=== PATIENT | male | born 1990 | race African-American/Black ===

== ENCOUNTER 2017-01-04 09:43 | Emergency (ER) | payer OTHER, MEDICAID ==
[~2017-01-04] VITALS: Ht 188 cm; Wt 100.0 kg
[~2017-01-04 09:43] MED LIST: CEPH500C3 PO; LORT5TAB PO; Z.0.NO CURRENT MEDS
[2017-01-04 09:45] VITALS: BP 133/80; PULSE 76; RESP 12; TEMP 98.7; O2SAT 99
[2017-01-04] MEDS ORDERED: IBUP800T23 PO (10:41)
[2017-01-04] MEDS ORDERED: ROBA500T PO (10:41)
[2017-01-04] MEDS ORDERED: METR-1 PO (10:41)
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
[2017-01-04] MEDS ORDERED: IBUPROFEN 800 MG TAB PO ONE (11:00)
[2017-01-04] MEDS ORDERED: METHOCARBAMOL 500 MG TAB PO ONE (11:00)
== END 2017-01-04 11:31 | disposition home or self-care (01) ==
LOC: NEPB 09:43
DX: M54.5 Low back pain (principal); G89.29 Other chronic pain
CPT/HCPCS: 99283

== ENCOUNTER 2017-03-09 23:00 | Emergency (ER) | payer OTHER, MEDICAID ==
[~2017-03-09 23:00] MED LIST changes: +IBUP800T23 PO; +METR-1 PO; +ROBA500T PO
[2017-03-09 23:03] VITALS: BP 135/84; PULSE 82; RESP 14; TEMP 99.1; O2SAT 98
[2017-03-10] MEDS ORDERED: TETANUS/DIPHTHERIA TOXOID ADULT 0.5 ML VIAL IM ONE
[2017-03-10] MEDS ORDERED: AMOXICILLIN/CLAVULANATE K 875 MG TAB PO ONE
[2017-03-10] MEDS ORDERED: RABIES VACCINE CHICK EMB INJ 2.5 UNITS/ML SYR IM ONE
[2017-03-10] MEDS ORDERED: RABIES IMMUNE GLOBULIN INJ 1,500 UNITS/10 ML VIAL IM ONE
--- NOTE | 2017-03-10 00:04 | PD ---
HPI Chief Complaint: Bite or Sting Time Seen by Provider: 00:00 Travel History International Travel<30 days: No Contact w/Intl Traveler<30days: No Traveled to known affect area: No History of Present Illness HPI 26 her old male presents for evaluation after a stray cat bite. The patient reports that he was at work today at 4 PM when he saw a cat in the bushes. He attempted to take the cat across the street to a pet company reports that the cat began acting bizarre and then attacked him and bit him on the right hand. The cat then immediately . He now has a puncture wound to the medial aspect of the right thumb as well as a more tiny puncture wound to the dorsal aspect of the right second MCP. He has mild pain associated with both. Initially he was not planning to come here for evaluation but his employer suggested it. He denies any numbness or tingling. Last tetanus vaccination unknown. No other complaints. PFSH Past Medical History Asthma: No Autoimmune Disease: No Blood Disorders: No Heart Rhythm Problems: No Cardiovascular Problems: No Chest Pain: No Cystic Fibrosis: No Diminished Hearing: No Gastrointestinal Disorders: No Genitourinary: No Headaches: Yes (allergies) Hypertension: No Musculoskeletal: No Neurologic: Yes (Meningitis at 13 yrs old) Reproductive: No Respiratory: Yes (SEASONAL ALLERGIES) Seizures: No Sickle Cell Disease: No Sleep Apnea: No Past Surgical History Abdominal Surgery: No Cardiac Surgery: No Ear Surgery: No Endocrine Surgery: No Eye Surgery: No Genitourinary Surgery: No Gynecologic Surgery: No Neurologic Surgery: No Oral Surgery: No Thoracic Surgery: No Other Surgery: No Social History Alcohol Use: No Tobacco Use: No Substance Use: Yes (thc weekly) Allergies-Medications (Allergen,Severity, Reaction): Coded Allergies: No Known Allergies (Verified , 03/09/17) Reported Meds & Prescriptions Reported Meds & Active Scripts Active Augmentin (Amoxicillin-Clavulanate) 875-125 mg Tab 875 Mg PO BID 7 Days not for use in CrCl <30 ml/min. Review of Systems Musculoskeletal: No: Limited ROM Skin: Positive Other (positive for puncture wound, pain) Neurologic: No: Paresthesia Physical Exam Narrative GENERAL: Well-developed well-nourished male in no acute distress SKIN: Warm and dry. He puncture wound noted to the medial aspect of the right thumb, dorsal aspect of the right second MCP region of the right hand. CARDIOVASCULAR: Regular rate and rhythm. No murmur appreciated. RESPIRATORY: No accessory muscle use. Clear to auscultation. Breath sounds equal bilaterally. Extremities: Skin as noted above. The patient maintains full range of motion of the right hand and digits. There is no erythema or drainage. Data Data Last Documented VS Vital Signs Date Time Temp Pulse Resp B/P Pulse Ox O2 Delivery O2 Flow Rate FiO2 03/09/17 23:03 99.1 82 14 135/84 98 Room Air Orders Hand, Limited (2vws) (03/09/17 ) Tetanus/Diphtheria Tox Adult (Tetanus/Di (03/10/17 00:00) Amoxicil-Clavulanate (Augmentin) (03/10/17 00:00) Rabies Immune Globulin Inj (Hyperrab S/D (03/10/17 00:00) Rabies Vaccine Human Cell Inj (Imovax In (03/10/17 00:30) Ibuprofen (Motrin) (03/10/17 02:15) MDM Medical Decision Making Medical Screen Exam Complete: Yes Emergency Medical Condition: Yes Medical Record Reviewed: Yes Differential Diagnosis Cat bite, puncture wound, foreign body Narrative Course 26-year-old male presents after being bitten by a cat several hours ago on the right hand. He reports that it was a stray cat and the cat spontaneously immediately after biting him. Plan for x-ray imaging, tetanus vaccination, Augmentin. Given the history, the patient will be started on the rabies vaccination series. Rabies immunoglobulin dose will be provided today as well. X-rays negative. The patient is being discharged with Augmentin. Discussed the importance of follow-up for full vaccination series. Discussed signs and symptoms of active infection outboard returning to the emergency room. He has stable for discharge. Diagnosis Primary Impression: Cat bite Qualified Code: W55.01XA - Cat bite, initial encounter Referrals: [facility] Dept. Patient Instructions: Animal Bite (ED), General Instructions Additional Instructions: As discussed, a total 5 vaccinations are required for rabies prophylaxis. These vaccinations are current a 0, 3, 7, 14, 28. The dates that he would require additional vaccination are: March 13, March 17, March 24, april 07. He can receive these doses at the health department. Take antibiotics as prescribed. Monitor for signs of infection such as pus coming from the wounds, increasing red and painful skin, red streaks up the arm, fevers. Return here for any worsening symptoms. Med/Other Pt SpecificInfo: Prescription(s) given Scripts Amoxicillin-Clavulanate (Augmentin)875-125 mg [id number] Mg PO BID 7 Days Ref 0 not for use in CrCl <30 ml/min. Prov:Jacoby Avilez MD 03/10/17 Disposition: 01 DISCHARGE HOME Condition: Stable Pavan Lazar Mar 10, 2017 00:04
[2017-03-10] MEDS ORDERED: RABIES VACCINE HUMAN DIPL CELL 2.5 UNITS/ML SYRINGE IM ONE (00:30)
--- NOTE | 2017-03-10 00:36 | RADRPT ---
EXAM DATE/TIME: 03/10/2017 00:30 [facility] COMPARISON: FINGER RIGHT 3RD DIGIT ([id number]), September 13, 2007, 8:45. INDICATIONS : Pain and swelling to right hand from a cat bite. MEDICAL HISTORY : None. SURGICAL HISTORY : None. ENCOUNTER: Initial ACUITY: 1 day PAIN SCORE: 5/10 LOCATION: Right hand FINDINGS: Two view examination of the right hand demonstrates no soft tissue swelling, dislocation, or fracture . The joint spaces are maintained. Bony mineralization is normal. CONCLUSION: Unremarkable limited examination of the right hand. Florentin Willis MD on March 10, 2017 at 0:35 Board Certified Radiologist. This report was verified electronically.
[2017-03-10] MEDS ORDERED: AUGM875T PO (00:47)
[2017-03-10] MEDS ORDERED: IBUPROFEN 800 MG TAB PO ONE (02:15)
== END 2017-03-10 03:20 | disposition home or self-care (01) ==
LOC: NEPK 23:00
DX: S61.451A Open bite of right hand, initial encounter (principal); W55.01XA Bitten by cat, initial encounter
CPT/HCPCS: 73120; 90375; 90471; 90472; 90675; 90714; 96372

== ENCOUNTER 2017-07-02 07:16 | Emergency (ER) | payer MEDICAID ==
[~2017-07-02] VITALS: Ht 188 cm; Wt 95.5 kg
[~2017-07-02 07:16] MED LIST changes: +AUGM875T PO; -CEPH500C3 PO; -IBUP800T23 PO; -LORT5TAB PO; -METR-1 PO; -ROBA500T PO; -Z.0.NO CURRENT MEDS
[2017-07-02 07:18] VITALS: BP 137/79; PULSE 55; RESP 20; TEMP 98.3; O2SAT 100
[2017-07-02] MEDS ORDERED: PHEN0.4T PO (07:47)
--- NOTE | 2017-07-02 07:48 | PD ---
HPI Chief Complaint: Complaint Time Seen by Provider: 07:42 Travel History International Travel<30 days: No Contact w/Intl Traveler<30days: No Traveled to known affect area: No History of Present Illness HPI 26-year-old male presents to the emergency Department with complaint of frequent urination times one and half weeks. Reports feeling pressure in his bladder, but is relieved after urination. Denies dysuria, hematuria, urgency. Denies penile discharge. Denies penile pain, testicular pain, testicular swelling. Denies abdominal pain, fever, vomiting. Unknown exposure to STD. Had STD screening at the health department in December and everything came back good. No known allergies. Has no other medical complaints. No other modifying factors or associated signs and symptoms. PFSH Past Medical History Hx Anticoagulant Therapy: No Asthma: No Autoimmune Disease: No Blood Disorders: No Heart Rhythm Problems: No Cardiovascular Problems: No Chemotherapy: No Chest Pain: No Cerebrovascular Accident: No Cystic Fibrosis: No Diabetes: No Diminished Hearing: No Gastrointestinal Disorders: No Genitourinary: No Headaches: Yes (allergies) Hypertension: No Musculoskeletal: No Neurologic: Yes (Meningitis at 13 yrs old) Reproductive: No Respiratory: No Seizures: No Sickle Cell Disease: No Sleep Apnea: No Past Surgical History Abdominal Surgery: No Cardiac Surgery: No Ear Surgery: No Endocrine Surgery: No Eye Surgery: No Genitourinary Surgery: No Gynecologic Surgery: No Neurologic Surgery: No Oral Surgery: No Thoracic Surgery: No Other Surgery: No Social History Alcohol Use: No Tobacco Use: No Substance Use: Yes (thc weekly) Allergies-Medications (Allergen,Severity, Reaction): Coded Allergies: No Known Allergies (Verified , 07/02/17) Reported Meds & Prescriptions Reported Meds & Active Scripts Active No Active Prescriptions or Reported Medications Review of Systems Except as stated in HPI: all other systems reviewed are Neg Physical Exam Narrative GENERAL: Well-nourished, well-developed male patient, in no acute distress SKIN: Warm and dry. No rash. HEAD: Atraumatic. Normocephalic. EYES: Pupils equal and round. No scleral icterus. No injection or drainage. ENT: Mucosa pink and moist. NECK: Trachea midline. CARDIOVASCULAR: Regular rate. RESPIRATORY: No accessory muscle use. GASTROINTESTINAL: Abdomen soft, non-tender, nondistended. Hepatic and splenic margins not palpable. Bowel sounds are active 4 quadrants. Bladder nontender and nondistended. MUSCULOSKELETAL: No obvious deformities. No clubbing. No cyanosis. No edema. BACK: No CVA tenderness NEUROLOGICAL: Awake and alert. Oriented 3. No obvious cranial nerve deficits. Motor grossly within normal limits. Normal speech. Moves all extremities. 5/5 strength to all extremities. PSYCHIATRIC: Appropriate mood and affect; insight and judgment normal. Data Data Last Documented VS Vital Signs Date Time Temp Pulse Resp B/P Pulse Ox O2 Delivery O2 Flow Rate FiO2 07/02/17 07:18 98.3 55 20 137/79 100 Room Air Orders Gc And Chlamydia Pcr (07/02/17 07:36) Urinalysis - C+S If Indicated (07/02/17 07:36) Labs Laboratory Tests Test 07/02/17 07:45 Urine Color YELLOW Urine Turbidity CLEAR Urine pH 7.0 Urine Specific Virgin 1.023 Urine Protein NEG mg/dL Urine Glucose (UA) NEG mg/dL Urine Ketones NEG mg/dL Urine Occult Blood NEG Urine Nitrite NEG Urine Bilirubin NEG Urine Urobilinogen LESS THAN 2.0 MG/DL Urine Leukocyte Esterase NEG Urine RBC LESS THAN 1 /hpf Urine WBC 1 /hpf Urine Mucus FEW /lpf Microscopic Urinalysis Comment CULT NOT INDICATED MDM Medical Decision Making Medical Screen Exam Complete: Yes Emergency Medical Condition: Yes Medical Record Reviewed: Yes Differential Diagnosis Urinary frequency, urinary tract infection, STD Narrative Course 26-year-old male with frequent urination times one and half weeks. Patient is afebrile and nontoxic appearing. Denies fever, vomiting. No abdominal pain. Bladder is nondistended and nontender on exam. Patient denies penile discharge. Unknown exposure to STD. I do not feel it is necessary to treat the patient empirically for chlamydia or gonorrhea with no current symptoms. Chlamydia and gonorrhea pending. Urinalysis ordered. 0816: Urinalysis with no signs of infection. Pyridium prescribed for home. Instructed patient to follow up with primary care provider. Patient verbalizes understanding and agreement with treatment plan. Patient is medically cleared and stable for discharge. Discussed reasons to return to the emergency department. Patient agrees with treatment plan. The patients vital signs are stable and the patient is stable for outpatient follow-up and treatment. Patient discharged home, stable and in no acute distress. Diagnosis Primary Impression: Frequency of urination Referrals: [facility] Primary Care Physician Patient Instructions: General Instructions, Urinary Urgency and Frequency (DC) Departure Forms: Tests/Procedures, Work Release Enter return to work date: Jul 03, 2017 Additional Instructions: Take Pyridium for bladder spasms: Pyridium will turn your urine bright orange Drink plenty of fluids Maintain good personal hygiene Follow-up with primary care provider Return to the emergency department immediately with worsening of symptoms Med/Other Pt SpecificInfo: Prescription(s) given Scripts No Active Prescriptions or Reported Meds Disposition: 01 DISCHARGE HOME Condition: Stable Jazlyn Peralta Jul 02, 2017 07:48
[2017-07-02 08:03] LABS: BLOOD, URINE NEG (NEG); COMMENT (UR) CULT NOT INDICATED; CULTURE IF INDICATED CULT NOT INDICATED; GLUCOSE,URINE NEG (NEG); KETONE, URINE NEG (NEG); MUCUS URINE FEW /lpf (OCC); NITRITE,URINE NEG (NEG); URINE COLOR YELLOW (YELLW/STRAW)
[2017-07-02 11:46] LABS: CHLAMYDIA PCR NOT DETECTED (NOT DETECT); NEISSERIA PCR NOT DETECTED (NOT DETECT)
== END 2017-07-02 08:49 | disposition home or self-care (01) ==
LOC: NEPK 07:16
DX: R35.0 Frequency of micturition (principal)
CPT/HCPCS: 81001; 87491; 87591; 99283

== ENCOUNTER 2017-07-12 09:19 | Emergency (ER) | payer MEDICAID ==
[~2017-07-12] VITALS: Ht 188 cm; Wt 96.0 kg
[2017-07-12 09:20] VITALS: BP 123/65; PULSE 76; RESP 16; TEMP 98.4; O2SAT 100
--- NOTE | 2017-07-12 10:43 | PD ---
HPI Chief Complaint: Complaint Time Seen by Provider: 10:13 Travel History International Travel<30 days: No Contact w/Intl Traveler<30days: No Traveled to known affect area: No History of Present Illness HPI This patient complains of frequent urination. Duration is 2 weeks. He was seen here 5 days ago for the same thing. He does not go to a primary physician. He denies fever. Denies urethral discharge or dysuria. No back pain or injury. PFSH Past Medical History Hx Anticoagulant Therapy: No Asthma: No Autoimmune Disease: No Blood Disorders: No Heart Rhythm Problems: No Cardiovascular Problems: No Chemotherapy: No Chest Pain: No Cerebrovascular Accident: No Cystic Fibrosis: No Diabetes: No Diminished Hearing: No Gastrointestinal Disorders: No Genitourinary: No Headaches: Yes (allergies) Hypertension: No Medical other: Yes (LUMBAR PUNCTURE ) Musculoskeletal: No Neurologic: Yes (Meningitis at 13 yrs old) Reproductive: No Respiratory: No Immunizations Current: No Seizures: No Sickle Cell Disease: No Sleep Apnea: No Tetanus Vaccination: < 5 Years Influenza Vaccination: Yes Past Surgical History Abdominal Surgery: No Cardiac Surgery: No Ear Surgery: No Endocrine Surgery: No Eye Surgery: No Genitourinary Surgery: No Gynecologic Surgery: No Neurologic Surgery: No Oral Surgery: No Thoracic Surgery: No Other Surgery: No Social History Alcohol Use: No Tobacco Use: Yes (1 cig ) Substance Use: Yes (thc weekly) Allergies-Medications (Allergen,Severity, Reaction): Coded Allergies: No Known Allergies (Verified , 07/12/17) Reported Meds & Prescriptions Reported Meds & Active Scripts Active No Active Prescriptions or Reported Medications Review of Systems General / Constitutional: No: Fever HENT: No: Headaches Cardiovascular: No: Chest Pain or Discomfort Respiratory: No: Cough Musculoskeletal: Positive: Arthralgias, Limited ROM, Pain Physical Exam Narrative GASTROINTESTINAL: Abdomen soft, non-tender, nondistended. Positive bowel sounds. No hepato-splenomegaly, or palpable masses. No guarding. SKIN: Focused skin assessment reveals no rash or ulcers. Skin is warm and dry. Palpation shows no induration or nodules. Left knee: Has a joint effusion on the left. No erythema or bruising or warmth. No bony tenderness. Data Data Last Documented VS Vital Signs Date Time Temp Pulse Resp B/P (MAP) Pulse Ox O2 Delivery O2 Flow Rate FiO2 07/12/17 09:20 98.4 76 16 123/65 (84) 100 Room Air Orders Orders Blood Glucose (07/12/17 10:31) MDM Medical Decision Making Medical Screen Exam Complete: Yes Emergency Medical Condition: Yes Medical Record Reviewed: Yes Differential Diagnosis UTI, hyperglycemia, joint effusion Narrative Course I have reviewed the patient's electronic medical record. Reviewed his visit from 5 days ago. Urinalysis was normal and GC chlamydia negative I'm not going to repeat those studies from 5 days ago. Accu-Chek 71, no clinical suspicion of diabetes as the cause of his frequent urination He does have soft tissue injury of the left knee and I recommend ice and elevate and crutches and nonweightbearing status orthopedic follow-up He refused crutches Diagnosis Primary Impression: Frequency of urination Additional Impression: Soft tissue injury of left knee Qualified Codes: S89.92XA - Unspecified injury of left lower leg, initial encounter Additional Instructions: The patient was advised to follow up with their primary care physician and orthopedist and return if they worsen. Ice and elevate and limit weightbearing on left knee Med/Other Pt SpecificInfo: Other Scripts No Active Prescriptions or Reported Meds Disposition: 01 DISCHARGE HOME Condition: Stable Joaquín Canchola MD Jul 12, 2017 10:43
== END 2017-07-12 11:03 | disposition home or self-care (01) ==
LOC: NEPD 09:19
DX: R35.0 Frequency of micturition (principal); S89.92XA Unspecified injury of left lower leg, initial encounter; X58.XXXA Exposure to other specified factors, initial encounter
CPT/HCPCS: 99282

== ENCOUNTER 2017-10-23 07:29 | Emergency (ER) | payer MEDICAID ==
[~2017-10-23] VITALS: Ht 188 cm; Wt 100.0 kg
[2017-10-23 07:31] VITALS: BP 139/84; PULSE 82; RESP 12; TEMP 98.5; O2SAT 99
[2017-10-23 08:17] LABS: BLOOD, URINE NEG (NEG); COMMENT (UR) CULT NOT INDICATED; CULTURE IF INDICATED CULT NOT INDICATED; GLUCOSE,URINE NEG (NEG); HYALINE CAST, URINE 1 /lpf (RARE); KETONE, URINE NEG (NEG); MUCUS URINE FEW /lpf (OCC); NITRITE,URINE NEG (NEG); PH, URINE 6.5 (5.0-8.5); URINE COLOR DARK-YELLOW (YELLW/STRAW)
--- NOTE | 2017-10-23 08:30 | PD ---
HPI Chief Complaint: Complaint Time Seen by Provider: 08:01 Travel History International Travel<30 days: No Contact w/Intl Traveler<30days: No Traveled to known affect area: No History of Present Illness HPI 27-year-old male presents to the emergency department complaint of bladder pressure times one month. Patient was seen here back in June for the same complaint twice. He says he followed up with his health clinic and was told he had a "prostate infection" and was given antibiotics which resolved his prostate infection, but now he has a bladder infection. Reports dysuria, frequency, hesitancy. Denies penile discharge, pain, testicular pain, testicular swelling. Denies hematuria. Denies abdominal pain, fevers, vomiting , change stool. Is taking Uristat for symptom management with no relief. Rates pain 8/10. Describes it as a pressure, aching, burning sensation. Pain is worse in sitting position. Has no known allergies. Does not a primary care provider. Denies significant past medical history. Does not currently take any medications. Has no other medical complaints. No other modifying factors or associated signs and symptoms. PFSH Past Medical History Hx Anticoagulant Therapy: No Asthma: No Autoimmune Disease: No Blood Disorders: No Heart Rhythm Problems: No Cardiovascular Problems: No Chemotherapy: No Chest Pain: No Cerebrovascular Accident: No Cystic Fibrosis: No Diabetes: No Diminished Hearing: No Gastrointestinal Disorders: No Genitourinary: No Headaches: Yes (allergies) Hypertension: No Musculoskeletal: No Neurologic: Yes (Meningitis at 13 yrs old) Reproductive: No Respiratory: No Immunizations Current: No Seizures: No Sickle Cell Disease: No Sleep Apnea: No Past Surgical History Abdominal Surgery: No Cardiac Surgery: No Ear Surgery: No Endocrine Surgery: No Eye Surgery: No Genitourinary Surgery: No Gynecologic Surgery: No Neurologic Surgery: No Oral Surgery: No Thoracic Surgery: No Other Surgery: No Social History Alcohol Use: No Tobacco Use: Yes (1 cig ) Substance Use: Yes (thc weekly) Allergies-Medications (Allergen,Severity, Reaction): Coded Allergies: No Known Allergies (Verified Adverse Reaction, Unknown, 10/23/17) Reported Meds & Prescriptions Reported Meds & Active Scripts Active No Active Prescriptions or Reported Medications Review of Systems Except as stated in HPI: all other systems reviewed are Neg Physical Exam Narrative GENERAL: Well-nourished, well-developed black male patient, in no acute distress ; afebrile, nontoxic-appearing SKIN: Warm and dry. When the patient points to the area of pain is to the left groin area; there is no evidence of inguinal hernia in the sitting, lying or standing position. I'm unable to elicit any pain on palpation to the area. HEAD: Atraumatic. Normocephalic. EYES: Pupils equal and round. No scleral icterus. No injection or drainage. ENT: Mucosa pink and moist. NECK: Trachea midline. CARDIOVASCULAR: Regular rate and rhythm. No murmur appreciated. RESPIRATORY: No accessory muscle use. Clear to auscultation. Breath sounds equal bilaterally. GASTROINTESTINAL: Abdomen soft, non-tender, nondistended. Hepatic and splenic margins not palpable. Bowel sounds are active 4 quadrants. Bladder nontender and nondistended. MUSCULOSKELETAL: No obvious deformities. No clubbing. No cyanosis. No edema. BACK: No CVA tenderness NEUROLOGICAL: Awake and alert. Oriented 3. No obvious cranial nerve deficits. Motor grossly within normal limits. Normal speech. Moves all extremities. 5/5 strength to all extremities. PSYCHIATRIC: Appropriate mood and affect; insight and judgment normal. Data Data Last Documented VS Vital Signs Date Time Temp Pulse Resp B/P (MAP) Pulse Ox O2 Delivery O2 Flow Rate FiO2 10/23/17 09:04 10/23/17 07:31 98.5 82 12 99 Room Air Orders Orders Urinalysis - C+S If Indicated (10/23/17 07:46) Gc And Chlamydia Pcr (10/23/17 07:46) Ed Discharge Order (10/23/17 08:33) Ibuprofen (Motrin) (10/23/17 08:45) Labs Laboratory Tests Test 10/23/17 07:45 Urine Color DARK-YELLOW Urine Turbidity CLEAR Urine pH 6.5 Urine Specific Anselmo 1.023 Urine Protein NEG mg/dL Urine Glucose (UA) NEG mg/dL Urine Ketones NEG mg/dL Urine Occult Blood NEG Urine Nitrite NEG Urine Bilirubin NEG Urine Urobilinogen LESS THAN 2.0 MG/DL Urine Leukocyte Esterase NEG Urine RBC LESS THAN 1 /hpf Urine WBC LESS THAN 1 /hpf Urine Hyaline Casts 1 /lpf Urine Mucus FEW /lpf Microscopic Urinalysis Comment CULT NOT INDICATED Chlamydia trachomatis DNA (PCR) NOT DETECTED Neisseria gonorrhoeae DNA (PCR) NOT DETECTED MDM Medical Decision Making Medical Screen Exam Complete: Yes Emergency Medical Condition: Yes Medical Record Reviewed: Yes Differential Diagnosis Cystitis, chlamydia, gonorrhea, inguinal hernia Narrative Course 08: Urinalysis without signs of infection. Chlamydia and gonorrhea pending. Instructed patient to follow up with [facility]. Instructed patient to follow up with primary care provider. Patient verbalizes understanding and agreement with treatment plan. Patient is medically cleared and stable for discharge. Discussed reasons to return to the emergency department. Patient agrees with treatment plan. The patients vital signs are stable and the patient is stable for outpatient follow-up and treatment. Patient discharged home, stable and in no acute distress. Diagnosis Primary Impression: Frequency of urination Additional Impression: Left groin pain Referrals: [facility] Primary Care Physician Patient Instructions: General Instructions, Groin Pain (ED), Urinary Urgency and Frequency (DC) Additional Instructions: Follow-up with [facility] Follow-up with urologist Med/Other Pt SpecificInfo: No Change to Meds, No Meds Exist/No RX given Scripts No Active Prescriptions or Reported Meds Disposition: DISCHARGE HOME Condition: Stable Jazlyn Peralta Oct 23, 2017 08:30
[2017-10-23] MEDS ORDERED: IBUPROFEN 800 MG TAB PO ONE (08:45)
[2017-10-23 10:55] LABS: CHLAMYDIA PCR NOT DETECTED (NOT DETECT); NEISSERIA PCR NOT DETECTED (NOT DETECT)
== END 2017-10-23 09:10 | disposition home or self-care (01) ==
LOC: NEPD 07:29
DX: R35.0 Frequency of micturition (principal); R10.9 Unspecified abdominal pain; F17.210 Nicotine dependence, cigarettes, uncomplicated
CPT/HCPCS: 81001; 87491; 87591; 99283